=== PATIENT | female | born 1975 | race Caucasian/White ===

== ENCOUNTER 2021-02-13 12:48 | Emergency (ER) | payer OTHER ==
[~2021-02-13] VITALS: Ht 157.5 cm; Wt 49.9 kg
[~2021-02-13 12:48] MED LIST: PERCOCET 5/3251 TAB PO; ZOFRAN4 MG PO
== END 2021-02-13 21:34 | disposition home or self-care (01) ==
LOC: ER 12:48
DX: D27.0 Benign neoplasm of right ovary (principal); R10.84 Generalized abdominal pain